=== PATIENT | female | born 1965 | race Caucasian/White ===

== ENCOUNTER 2016-07-17 09:35 | Emergency (ER) | payer BC ==
[2016-07-17] MEDS ORDERED: NORCO 5-325 TA1 EACH PO (11:35)
== END 2016-07-17 12:07 ==
LOC: EDMED 09:35
PROC: 2W3RXYZ Immobilization of Left Lower Leg using Other Device (ICD-10-PCS; principal; 2016-07-17)
DX: M25.562 Pain in left knee (principal); Z88.0 Allergy status to penicillin